=== PATIENT | male | born 1960 | race Caucasian/White ===

== ENCOUNTER → 2019-01-16 | Outpatient (REF) | payer BC ==
[2019-01-16 18:46] LABS: C REACTIVE PROTEIN QUANTITATIV < 0.30 MG/DL (0.00-0.30); RHEUMATOID FACTOR QUANT < 10.0 IU/ML (<15.0)
[2019-01-19 00:06] LABS: ANTINUCLEAR ANTIBODIES DIRECT Negative (Negative); Lyme Disease IgG/IgM Antibodie <0.91 ISR (0.00-0.90); Lyme Disease IgM Ab Quantitati <0.80 index (0.00-0.79)
== END ==
LOC: M LAB REF 16:32
PROVIDERS: ATTEND Nurse Practitioner Adult Health
DX: M79.10 Myalgia, unspecified site (principal)

== ENCOUNTER → 2019-04-21 | Outpatient (REF) | payer BC ==
[2019-04-23 09:24] LABS: HEPATITIS A ANTIBODY IGM NEGATIVE (NEGATIVE); HEPATITIS B CORE ANTIBODY IGM NEGATIVE (NEGATIVE); HEPATITIS B SURFACE ANTIGEN NEGATIVE (NEGATIVE)
== END ==
LOC: M LAB REF 19:06
PROVIDERS: ATTEND Nurse Practitioner Adult Health
DX: M13.0 Polyarthritis, unspecified (principal)

== ENCOUNTER → 2019-07-13 | Outpatient (CLI) | payer BC ==
--- NOTE | 2019-07-14 08:24 | REP ---
LUMBAR SPINE COMPLETE: 07/13/2019. Clinical history: Back pain with non work related injuries over the last few days. Findings: There are no prior studies. Standard five views are provided. Normal lordosis maintained. Significant narrowing at L4-L5 disc space and anterior osteophytes from L5 and facet arthropathy L4-5 and L5, S1. No spondylolysis or spondylolisthesis. No acute compression deformity. The other disc space heights are intact. Vertebral body heights are intact. Pedicles, spinous and transverse processes were unremarkable. Lower thoracic levels and ribs intact. The sacral ala, foramina, SI joints are symmetric as are the iliac crest. Vascular calcifications aorta and iliac arteries. Fairly prominent. Impression: 1. Lumbar spondylosis greatest at L5-S1 with disc space narrowing. Anterior osteophytes. Facet arthropathy at this level with less degenerative disc change at the other levels but facet arthritis greatest at L5-S1. No compression deformity of destructive lesion. 2. No other significant bony finding. Electronically Signed by Deandre Chan MD 07/14/2019 09:49 A
== END ==
LOC: M WUC 16:34
PROVIDERS: ATTEND Physician Assistant
DX: M54.32 Sciatica, left side (principal); M47.817 Spondylosis without myelopathy or radiculopathy, lumbosacral region

== ENCOUNTER → 2019-09-16 | Outpatient (CLI) | payer BC | LOC: M LABSMTC 11:16 | PROVIDERS: ATTEND Family Medicine | DX: Z11.59 Encounter for screening for other viral diseases (principal); Z20.828 Contact with and (suspected) exposure to other viral communicable diseases ==

== ENCOUNTER 2019-10-16 21:36 | Emergency (ER) | payer BC ==
[~2019-10-16] VITALS: Ht 165.1 cm; Wt 92.8 kg
[2019-10-16] MEDS ORDERED: DULO1CAP6 (21:55)
[2019-10-16] MEDS ORDERED: HYDR25TAB (21:55)
[2019-10-16] MEDS ORDERED: LEVO137T2 (21:55)
[2019-10-16] MEDS ORDERED: CLON1TAB8 (21:55)
[2019-10-16] MEDS ORDERED: POTA20TA6 (21:55)
[2019-10-16] MEDS ORDERED: METF500T13 (21:55)
[2019-10-16] MEDS ORDERED: ATOR1TAB21 (21:55)
[2019-10-16] MEDS ORDERED: BUPR150T5 (21:55)
[2019-10-16] MEDS ORDERED: GABA600T4 (21:55)
[2019-10-16] MEDS ORDERED: CYCL-707 (21:55)
[2019-10-16] MEDS ORDERED: NITROGLYCERIN 0.4 MG SUBL TABLET SL STA (22:16)
[2019-10-16 22:24] LABS: BASO % 0.5 % (0.0-1.0); EOS # 0.1 10^3/uL (0.0-0.5); EOS % 1.4 % (0.0-3.0); HEMATOCRIT 37.2 % (36.0-47.0); HEMOGLOBIN 11.9 g/dl (12.0-15.5); LYMPH # 1.7 10^3/uL (1.5-5.0); LYMPH % 28.7 % (24.0-44.0); MEAN CORPUSCULAR HEMOGLOBIN 27.9 pg (27.0-33.0); MEAN CORPUSCULAR VOLUME 87.1 fl (80.0-96.0); MONO # 0.5 10^3/uL (0.0-0.8); MONO % 8.5 % (0.0-5.0); NEUTROPHILS # 3.6 10^3/uL (1.5-8.5); NEUTROPHILS % 60.6 % (36.0-66.0); PLATELET COUNT, AUTOMATED 300 10^3/uL (150-450); RED BLOOD COUNT 4.27 10^6/uL (4.00-5.40); WHITE BLOOD COUNT 5.9 10^3/uL (4.0-10.0)
[2019-10-16] MEDS ORDERED: LORazepam 1 MG TAB PO STA (22:24)
[2019-10-16] MEDS ORDERED: ASPIRIN 81 MG CHEW TABLET PO ONE (22:30)
[2019-10-16 22:50] VITALS: BP 140/78
[2019-10-16 22:52] LABS: BLOOD UREA NITROGEN 15 MG/DL (7-18); CALCIUM LEVEL 9.2 MG/DL (8.5-10.1); CARBON DIOXIDE LEVEL 32 MEQ/L (21-32); CHLORIDE LEVEL 100 MEQ/L (98-107); CK-MB VALUE MASS < 1.0 NG/ML (<3.6); CPK CREATINE PHOSPHOKINASE 115 U/L (26-192); CREATININE FOR GFR 0.86 MG/DL (0.55-1.30); GLOMERULAR FILTRATION RATE > 60.0 (>51); GLUCOSE, FASTING 106 MG/DL (70-100); MB/CK RELATIVE INDEX 0.87 (< OR =4); NT-PRO BNP 54 PG/ML (<125); POTASSIUM SERUM 3.3 MEQ/L (3.5-5.1); SODIUM LEVEL 140 MEQ/L (136-145); TROPONIN I < 0.02 NG/ML (< 0.10)
[2019-10-16 23:30] VITALS: BP 135/79
--- NOTE | 2019-10-17 00:24 | REP ---
Clinical: Chest pain. Technique: Portable upright view of the chest. Comparison: None. Findings: Elevation to the right hemidiaphragm noted. Bilateral visualized aerated lung queen are clear. No pneumothorax. Visualized mediastinum and cardiac silhouette are normal. Skeletal structures are intact. Impression: Presumed chronic elevation to the right hemidiaphragm. No focal consolidation or effusion. Electronically Signed by Sixto Curran MD 10/17/2019 12:15 A
--- NOTE | 2019-10-17 02:02 | ECGEPIP ---
[facility] - ED Test Date: 2019-10-16 Pat Name: ISAIAS PALMER Department: Room: - Gender: Female [employer]: kendra : 1960 Requested By: Charlie Anthony Order Number: [id number] Reading MD: Charlie Simpson Measurements Intervals [place] Rate: 100 P: 37 AL: 133 QRS: -13 QRSD: 96 T: -4 QT: 349 QTc: 451 Interpretive Statements SINUS TACHYCARDIA NONSPECIFIC T-WAVE ABNORMALITY NO PRIORS FOR COMPARISON Electronically Signed on 10-17-2019 2:01:53 EDT by Charlie Simpson
== END 2019-10-16 23:46 | disposition home or self-care (01) ==
LOC: M ED 21:36
DX: R07.9 Chest pain, unspecified (principal); R94.31 Abnormal electrocardiogram [ECG] [EKG]; I10 Essential (primary) hypertension; E11.9 Type 2 diabetes mellitus without complications; E78.5 Hyperlipidemia, unspecified; F33.9 Major depressive disorder, recurrent, unspecified; F41.9 Anxiety disorder, unspecified; Z88.0 Allergy status to penicillin; Z88.8 Allergy status to other drugs, medicaments and biological substances; Z79.899 Other long term (current) drug therapy